=== PATIENT | male | born 1990 | race Caucasian/White ===

== ENCOUNTER → 2016-04-30 | Outpatient (CLI) | payer BC ==
[~2016-04-30] MED LIST: ADV1DS1 INH; ALBU2.5V4 INH; ALBU8.5H2 IH; ALBUTEROL; AURODEX10M RIGHT EAR; CFR250T; DOXY100C2 PO; FLUT16SP22 NS; HYDR-31; IBUP200T48 PO; LORA10TA7 PO; MONT10TA24 PO; PRD10T PO; PRED10TA PO; [UNRECOGNIZED DRUG - CODE] PO; [UNRECOGNIZED DRUG - OTHER]; [UNRECOGNIZED DRUG - OTHER] PO
== END ==
LOC: CARD 13:48
PROVIDERS: ATTEND Internal Medicine Cardiovascular Disease
DX: J45.909 Unspecified asthma, uncomplicated (principal); R05 Cough; R06.83 Snoring; R00.2 Palpitations
CPT/HCPCS: 93225; 93226

== ENCOUNTER → 2016-05-07 | Outpatient (CLI) | payer BC | LOC: CARD 09:52 | PROVIDERS: ATTEND Internal Medicine Cardiovascular Disease | DX: R00.2 Palpitations (principal); J45.909 Unspecified asthma, uncomplicated; R05 Cough; R06.83 Snoring | CPT/HCPCS: 93017 ==

== ENCOUNTER 2018-04-03 12:56 | Emergency (ER) | payer BC | END 2018-04-03 14:50 | disposition home or self-care (01) | LOC: ER 12:56 ==

== ENCOUNTER 2019-02-15 02:48 | Emergency (ER) | payer BC ==
[~2019-02-15] VITALS: Ht 172 cm; Wt 180.0 kg
[~2019-02-15 02:48] MED LIST changes: +ACHD5005 PO
[2019-02-15 03:17] LABS: BASOPHILS # (AUTO) 0.1 10^3/uL (0.0-0.1); BASOPHILS % (AUTO) 1 % (0-10); EOSINOPHILS # (AUTO) 0.2 10^3/uL (0.0-0.3); EOSINOPHILS % (AUTO) 2 % (0-10); HEMATOCRIT 45 % (40-54); HEMOGLOBIN 14.6 G/DL (13.3-17.7); LYMPHOCYTES # (AUTO) 2.6 X 10^3 (1.0-4.0); LYMPHOCYTES % (AUTO) 34 % (12-44); MEAN CORPUSCULAR HEMOGLOBIN 29 PG (25-34); MEAN CORPUSCULAR HGB CONC 33 G/DL (32-36); MEAN CORPUSCULAR VOLUME 88 FL (80-99); MEAN PLATELET VOLUME 10.8 FL (7.4-10.4); MONOCYTES # (AUTO) 0.6 X 10^3 (0.0-1.0); MONOCYTES % (AUTO) 8 % (0-12); NEUTROPHILS # (AUTO) 4.3 X 10^3 (1.8-7.8); NEUTROPHILS % (AUTO) 55 % (42-75); PLATELET COUNT 276 10^3/uL (130-400); WHITE BLOOD COUNT 7.8 10^3/uL (4.3-11.0)
[2019-02-15 03:33] LABS: FIBRIN DEGRADATION PRODUCTS 0.51 UG/ML (0.00-0.49); PROTHROMBIN TIME PATIENT 13.4 SEC (12.2-14.7)
[2019-02-15 03:36] LABS: ALANINE AMINOTRANSFERASE 51 U/L (0-55); ALBUMIN 4.2 GM/DL (3.2-4.5); ALKALINE PHOSPHATASE 102 U/L (40-136); BILIRUBIN,TOTAL 0.6 MG/DL (0.1-1.0); BUN/CREATININE RATIO 18; CALCIUM 8.9 MG/DL (8.5-10.1); CARBON DIOXIDE 20 MMOL/L (21-32); CHLORIDE 107 MMOL/L (98-107); CREATININE SERUM 0.78 MG/DL (0.60-1.30); GFR ESTIMATED > 60; GLUCOSE 118 MG/DL (70-105); SODIUM 138 MMOL/L (135-145); TOTAL PROTEIN 8.4 GM/DL (6.4-8.2)
[2019-02-15 03:39] LABS: POTASSIUM 6.3 MMOL/L (3.6-5.0)
[2019-02-15] MEDS ORDERED: NS 100 ML (IVPB) BAG IV ONE (05:15)
[2019-02-15] MEDS ORDERED: IOHEXOL 350 MG/ML 100 ML (OMNIPAQUE 350) VIAL IV ONE (05:15)
--- NOTE | 2019-02-15 05:41 | Diagnostic Imaging Report ---
INDICATION: Chest pain. COMPARISON: 08/03/2015 FINDINGS: Frontal and lateral views of the chest demonstrate normal heart size and pulmonary vascularity. The lungs are clear. There are no signs of infiltrate, pleural effusions or pneumothoraces. The visualized osseous structures show no acute abnormalities. IMPRESSION: 1. No acute process. No signs of infiltrates, effusions or pneumothoraces. Dictated by: Dictated on workstation # [id number]
--- NOTE | 2019-02-15 06:16 | ED Cardiac General ---
History of Present Illness General Chief Complaint: Chest Pain Stated Complaint: CHEST PAIN Nursing Triage Note: Patient advises that at approximately 2100 he began experiencing pain in his left chest at rest. Patient states he has a hx of asthma. Source: patient Exam Limitations: no limitations History of Present Illness Date Seen by Provider: Feb 15, 2019 Time Seen by Provider: 03:00 Initial Comments This 29-year-old gentleman presents to the emergency room with complaints of chest pain and shortness of breath since about 21:00. Pain seems to be worse with movement, especially movement of the upper extremities and with deep breathing. He denies tobacco use or history of heart problems. He has traveled to and from [place] several times recently as his brother was hospitalized there. He has a history of asthma but is not wheezing. He states he just turned 29 years old. His birthday and his brothers accident have caused him to think about his mortality recently. Patient is morbidly obese. Allergies and Home Medications Allergies Coded Allergies: NKANo Known Allergies (Unverified Allergy, Mild, 07/18/05) No Known Drug Allergies (Verified , 09/04/07) Home Medications Albuterol 8.5 Gm Hfa.aer.ad, 2 PUFF IH Q4H PRN for SHORTNESS OF BREATH, (Reported) Albuterol Sulfate 0.83 Mg/Ml Solution, 1 VIAL INH Q4H PRN for SHORTNESS OF BREATH, (Reported) Dextromethorphan Hbr/Chlor-Mal 118 Ml Liquid, 10 ML PO HS PRN for COUGH, (Reported) Doxycycline Hyclate 100 Mg Capsule, 100 MG PO BID, (Reported) 10 DAY SUPPLY FILLED 08-02-15 Fluticasone Propionate 16 Gm [place].susp, 0 SPRAY NS DAILY Prescribed by: AMANDA ZHU on 08/04/15 1619 Fluticasone/Salmeterol 500 Mcg/50 Mcg Inh, 1 PUFF INH BID, (Reported) Hydrocodone Bit/Acetaminophen 1 Tab Tab, 1 EACH PO Q4-6HR PRN for PAIN-MODERATE Prescribed by: NAYANA MCCONNELL on 04/03/18 1435 Ibuprofen 200 Mg Tablet, 600 MG PO TID PRN for PAIN, (Reported) Loratadine 10 Mg Tablet, 10 MG PO DAILY PRN for ALLERGIES, (Reported) Montelukast Sodium 10 Mg Tablet, 10 MG PO HS Prescribed by: AMANDA ZHU on 08/04/151618 Prednisone 10 Mg Tab, 10 MG PO DAILY Take 6 tabs (60mg) daily, decrease by 1 tab (10mg) daily. Prescribed by: AMANDA Farooq AUDRA on 08/04/151618 Patient Home Medication List Home Medication List Reviewed: Yes Review of Systems Review of Systems Constitutional: no symptoms reported EENTM: No Symptoms Reported Respiratory: See HPI Cardiovascular: See HPI Gastrointestinal: No Symptoms Reported Genitourinary: No Symptoms Reported Musculoskeletal: no symptoms reported Skin: no symptoms reported Psychiatric/Neurological: See HPI Endocrine: No Symptoms Reported Hematologic/Lymphatic: No Symptoms Reported Past Mbacceo-Fughhp-Pyutfu Hx Patient Social History Alcohol Use: Denies Use Recreational Drug Use: No Smoking Status: Never a Smoker 2nd Hand Smoke Exposure: No Recent Foreign Travel: No Contact w/Someone Who Travel: No Recent Infectious Disease Expo: No Recent Hopitalizations: Yes Immunizations Up To Date Tetanus Booster (TDap): Unknown PED Vaccines UTD: No Date of Pneumonia Vaccine: Apr 01, 2008 Date of Influenza Vaccine: Dec 30, 2014 Past Medical History Surgeries: Yes (ear tubes x3, ear drum surgery) Respiratory: Yes Asthma, Pneumonia, Chronic Bronchitis Currently Using CPAP: No Currently Using BIPAP: No Cardiac: No Neurological: Yes Reproductive Disorders: No Sexually Transmitted Disease: No HIV/AIDS: No Gastrointestinal: Yes Gastroesophageal Reflux, Chronic Diarrhea, Hiatal Hernia Musculoskeletal: Yes Arthritis, Fractures Endocrine: Yes (morbid obesity) Chronic Ear Infection Loss of Vision: Denies Hearing Impairment: Denies Cancer: No Psychosocial: No Integumentary: No Blood Disorders: No Family Medical History Asthma Diabetes mellitus Hypertension Physical Exam Vital Signs Vital Signs - First Documented 02/15/19 02:54 Pulse 89 Resp 24 B/P (MAP) 198/108 (138) Pulse Ox 100 O2 Delivery Room Air Capillary Refill : Less Than 3 Seconds Height, Weight, BMI Height: 5'8.00" Weight: 385lbs. 0.0oz. [id number]; 60.00 BMI Method:Stated General Appearance: No Apparent Distress, WD/WN, Obese HEENT: PERRL/EOMI, Normal ENT Inspection Neck: Normal Inspection Respiratory: Chest Non Tender, Lungs Clear, Normal Breath Sounds, No Accessory Muscle Use, No Respiratory Distress Cardiovascular: Regular Rate, Rhythm, No Edema, No Murmur Gastrointestinal: Normal Bowel Sounds, Non Tender, Soft Extremity: Normal Capillary Refill, Normal Inspection, Non Tender, No Calf Tenderness, No Pedal Edema Neurologic/Psychiatric: Alert, Oriented x3, No Motor/Sensory Deficits, Normal Mood/Affect, nipple threader II-XII Norm as Tested Skin: Normal Color, Warm/Dry Progress/Results/Core Measures Results/Orders Lab Results Laboratory Tests Test 02/15/19 03:04 Range/Units White Blood Count 7.8 4.3-11.0 10^3/uL Red Blood Count 5.07 4.35-5.85 10^6/uL Hemoglobin 14.6 13.3-17.7 G/DL Hematocrit 45 40-54 % Mean Corpuscular Volume 88 80-99 FL Mean Corpuscular Hemoglobin 29 25-34 PG Mean Corpuscular Hemoglobin Concent 33 32-36 G/DL Red Cell Distribution Width 14.0 10.0-14.5 % Platelet Count 276 130-400 10^3/uL Mean Platelet Volume 10.8 H 7.4-10.4 FL Neutrophils (%) (Auto) 55 42-75 % Lymphocytes (%) (Auto) 34 12-44 % Monocytes (%) (Auto) 8 0-12 % Eosinophils (%) (Auto) 2 0-10 % Basophils (%) (Auto) 1 0-10 % Neutrophils # (Auto) 4.3 1.8-7.8 X 10^3 Lymphocytes # (Auto) 2.6 1.0-4.0 X 10^3 Monocytes # (Auto) 0.6 0.0-1.0 X 10^3 Eosinophils # (Auto) 0.2 0.0-0.3 10^3/uL Basophils # (Auto) 0.1 0.0-0.1 10^3/uL Prothrombin Time 13.4 12.2-14.7 SEC INR Comment 1.0 0.8-1.4 Activated Partial Thromboplast Time 25 24-35 SEC D-Dimer 0.51 H 0.00-0.49 UG/ML Sodium Level 138 135-145 MMOL/L Potassium Level 6.3 H 3.6-5.0 MMOL/L Chloride Level 107 98-107 MMOL/L Carbon Dioxide Level 20 L 21-32 MMOL/L Anion Gap 11 5-14 MMOL/L Blood Urea Nitrogen 14 7-18 MG/DL Creatinine 0.78 0.60-1.30 MG/DL Estimat Glomerular Filtration Rate > 60 BUN/Creatinine Ratio 18 Glucose Level 118 H 70-105 MG/DL Calcium Level 8.9 8.5-10.1 MG/DL Corrected Calcium 8.7 8.5-10.1 MG/DL Magnesium Level 2.0 1.6-2.4 MG/DL Total Bilirubin 0.6 0.1-1.0 MG/DL Aspartate Amino Transf (AST/SGOT) 46 H 5-34 U/L Alanine Aminotransferase (ALT/SGPT) 51 0-55 U/L Alkaline Phosphatase 102 40-136 U/L Myoglobin 22.0 10.0-92.0 NG/ML Troponin I < 0.028 <0.028 NG/ML Total Protein 8.4 H 6.4-8.2 GM/DL Albumin 4.2 3.2-4.5 GM/DL My Orders Orders - ELSIE RODRIGUEZ MD Cbc With Automated Diff (02/15/19 03:05) Magnesium (02/15/19 03:05) Ekg Tracing (02/15/19 03:05) Cardiac Profile 1 (02/15/19 03:05) Comprehensive Metabolic Panel (02/15/19 03:05) Myoglobin Serum (02/15/19 03:05) Protime With Inr (02/15/19 03:05) Partial Thromboplastin Time (02/15/19 03:05) O2 (02/15/19 03:05) Monitor-Rhythm Ecg Trace Only (02/15/19 03:05) Lipid Panel (02/16/19 06:00) Ed Iv/Invasive Line Start (02/15/19 03:05) Chest Pa/Lat (2 View) (02/15/19 03:05) Fibrin Degradation Products (02/15/19 03:04) Ct Angio Chest W (02/15/19 03:57) Iohexol Injection (Omnipaque 350 Mg/Ml 1 (02/15/19 05:15) Ns (Ivpb) (Sodium Chloride 0.9% Ivpb Bag (02/15/19 05:15) Medications Given in ED Current Medications Medications Dose Ordered Sig/Juan F Route Start Time Stop Time Status Last Admin Dose Admin Iohexol 100 ml ONCE ONCE IV 02/15/19 05:15 02/15/19 05:17 DC 02/15/19 05:09 100 ML Sodium Chloride 80 ml ONCE ONCE IV 02/15/19 05:15 02/15/19 05:17 DC 02/15/19 05:10 80 ML Vital Signs/I&O 02/15/19 02/15/19 02/15/19 02:54 02:54 03:03 Pulse 89 Resp 24 B/P (MAP) 198/108 (138) Pulse Ox 100 100 O2 Delivery Room Air Room Air Room Air Blood Pressure Mean: 138 POS Progress Progress Note : Progress Note Initial cardiopulmonary workup was unremarkable except for minimal elevation in d-dimer. I discussed risks and benefits of CT angiogram with the patient. He elected to proceed with CT angiogram. Pulmonary vascular opacification was suboptimal but there was no evidence of pulmonary embolism on the CT scan. No further studies were pursued as the suspicion for pulmonary embolism was fairly low. Patient was comfortable and fell sleep prior to dismissal. Initial ECG Impression Date: Feb 15, 2019 Initial ECG Impression Time: 02:56 Initial ECG Rate: 82 Initial ECG Rhythm: Normal Sinus Initial ECG Intervals: Normal Comment Normal sinus rhythm with no ST elevation or depression. Incomplete right bundle branch block. No axis deviation. Diagnostic Imaging Diagonstic Imaging: Xray Plain Films/CT/US/NM/MRI: chest Comments Two-view chest x-ray viewed by me and report not yet available. No acute abnormalities appreciated. Diagonstic Imaging: CT Plain Films/CT/US/NM/MRI: chest Comments CT angiogram of the chest viewed by me. [employer] report reviewed. Imaging was suboptimal but there were no findings to suggest pulmonary embolism. Departure Impression Primary Impression: Atypical chest pain Additional Impression: Dyspnea Qualified Codes: R06.00 - Dyspnea, unspecified Disposition: HOME, SELF-CARE Condition: Stable Departure-Patient Inst. Decision time for Depature: 06:15 Referrals: AMANDA ZHU DO (PCP/Family) Primary Care Physician Patient Instructions: Chest Pain That Is Not Caused by the Heart (DC) Add. Discharge Instructions: For your atypical chest pain you may try ibuprofen up to 600 mg every 6 hours and/or Tylenol (acetaminophen) up to 1000 mg every 6 hours as needed. Follow-up with your primary care provider as soon as possible for further assessment. Discussed weight loss strategies with your doctor. Return to the emergency room if you have significant worsening of symptoms. All discharge instructions reviewed with patient and/or family. Voiced understanding. Copy Copies To 1: AMANDA ZHU JOSHUA T MD Feb 15, 2019 06:16 POS
[2019-02-15 06:41] VITALS: BP 114/86
--- NOTE | 2019-02-15 06:44 | Diagnostic Imaging Report ---
PROCEDURE: CT angiography of the chest with contrast. TECHNIQUE: Multiple contiguous axial images were obtained through the chest after uneventful bolus administration of intravenous contrast. 3D reconstructed CTA MIP acquisitions were also performed. Auto Exposure Controls were utilized during the CT exam to meet ALARA standards for radiation dose reduction. INDICATION: Chest pain. COMPARISON: 03/09/2014 FINDINGS: There is no evidence of acute pulmonary embolus to the segmental division of pulmonary arteries. Evaluation beyond this is suboptimal secondary to poor opacification of the pulmonary arteries by the contrast bolus. Main pulmonary arterial trunk measures 3.5 cm in diameter. This is abnormally prominent. Heart size is within normal limits. There is prominent pericardial fat. No pathologically enlarged or morphologically abnormal adenopathy is seen within the mediastinum, hilar, nor axilla. Thoracic aorta is normal in course and caliber. There is no evidence of dissection, aneurysm, nor focal stenosis. Evaluation of lung ellis demonstrates no focal consolidation, large effusion, nor pneumothorax. Small subpleural micronodule is noted within the lateral segment of the right middle lobe and measures 3 mm. This, however is stable compared to 03/09/2014. Lung ellis otherwise show low inspiratory volumes with a few scattered ill-defined ground glass densities, which are felt to be on the basis of atelectasis. No other suspicious pulmonary nodules or masses are identified. Osseous structures show no acute abnormalities. No lytic or blastic bony lesions are identified. Included portions of the upper abdomen show hypodense appearance of the liver consistent with underlying hepatic steatosis. IMPRESSION: 1. No acute pulmonary embolus to the segmental division of the pulmonary arteries. 2. Low lung volumes with subtle scattered ground glass densities, which again are felt to be on the basis of atelectasis. 3. Hepatic steatosis. 4. Prominence of the main pulmonary arterial trunk. Findings can be seen with underlying pulmonary arterial hypertension. Dictated by: Dictated on workstation # [id number]
== END 2019-02-15 06:30 | disposition home or self-care (01) ==
LOC: EDUNIT# 02:48 → ER 02:49
DX: R07.89 Other chest pain (principal); R06.00 Dyspnea, unspecified; J45.909 Unspecified asthma, uncomplicated; K21.9 Gastro-esophageal reflux disease without esophagitis; E66.01 Morbid (severe) obesity due to excess calories; Z79.51 Long term (current) use of inhaled steroids; Z79.52 Long term (current) use of systemic steroids; Z82.49 Family history of ischemic heart disease and other diseases of the circulatory system; Z68.44 Body mass index [BMI] 60.0-69.9, adult
CPT/HCPCS: 36415; 71046; 71275; 80053; 83735; 83874; 84484; 85025; 85379; 85610; 85730; 93005; 93041

== ENCOUNTER → 2020-04-08 | Outpatient (CLI) | payer BC ==
[~2020-04-08] MED LIST changes: +MONT10TA97 PO; +RT-ALBUTEROL SULF 2.5 MG/3 ML PRE-MIX VIAL INH ONE
== END ==
LOC: RT 15:30
PROVIDERS: ATTEND Internal Medicine
DX: J45.909 Unspecified asthma, uncomplicated (principal)
CPT/HCPCS: 94060; 94726; 94729

== ENCOUNTER 2020-10-01 15:17 | Emergency (ER) | payer BC ==
[~2020-10-01] VITALS: Ht 172 cm; Wt 181.8 kg
[~2020-10-01 15:17] MED LIST changes: +MONT10TA32 PO; -MONT10TA97 PO; -RT-ALBUTEROL SULF 2.5 MG/3 ML PRE-MIX VIAL INH ONE
[2020-10-01] MEDS ORDERED: DOXY100T2 PO (15:59)
--- NOTE | 2020-10-01 15:59 | ED Integumentary General ---
General Chief Complaint: Skin/Wound Problems Stated Complaint: POSS SPIDER BITE LEFT LEG Nursing Triage Note: PT PRESENTS TO THE ED C/O AN AREA OF CONCERN TO HIS LEFT POSTERIOR THIGH THAT HAS CONTINUED TO INCREASE IN SIZE DESPITE BEING SEEN AND GETTING IM AND ORAL ABX. FROM URGENT CARE Source: patient Exam Limitations: no limitations History of Present Illness Date Seen by Provider: Oct 01, 2020 Time Seen by Provider: 15:30 Initial Comments This 30-year-old gentleman presents to the emergency room with apparent spider bite on the left thigh for about 4 5 days. The center has become dusky and cratered. He has marked erythema, tenderness, and mild swelling extending and spreading from the site. He has been given an injection of antibiotic, placed on steroids, and started on Bactrim without improvement. He is afebrile and otherwise does not have any systemic symptoms. Allergies and Home Medications Allergies Coded Allergies: NKANo Known Allergies (Unverified Allergy, Mild, 07/18/05) No Known Drug Allergies (Verified , 09/04/07) Home Medications Albuterol 8.5 Gm Hfa.aer.ad, 2 PUFF IH Q4H PRN for SHORTNESS OF BREATH, (Reported) Albuterol Sulfate 0.83 Mg/Ml Solution, 1 VIAL INH Q4H PRN for SHORTNESS OF BREATH, (Reported) Dextromethorphan Hbr/Chlor-Mal 118 Ml Liquid, 10 ML PO HS PRN for COUGH, (Reported) Doxycycline Hyclate 100 Mg Capsule, 100 MG PO BID, (Reported) 10 DAY SUPPLY FILLED 08-02-15 Doxycycline Hyclate 100 Mg Tablet, 100 MG PO BID Prescribed by: ELSIE MARTÍNEZ on 10/01/20 1559 Fluticasone Propionate 16 Gm [place].susp, 0 SPRAY NS DAILY Prescribed by: AMANDA ZHU on 08/04/15 1619 Fluticasone/Salmeterol 500 Mcg/50 Mcg Inh, 1 PUFF INH BID, (Reported) Hydrocodone Bit/Acetaminophen 1 Tab Tab, 1 EACH PO Q4-6HR PRN for PAIN-MODERATE Prescribed by: NAYANA MCCONNELL on 04/03/18 1435 Ibuprofen 200 Mg Tablet, 600 MG PO TID PRN for PAIN, (Reported) Loratadine 10 Mg Tablet, 10 MG PO DAILY PRN for ALLERGIES, (Reported) Montelukast Sodium 10 Mg Tablet, 10 MG PO HS Prescribed by: AMANDA ZHU on 08/04/151618 Prednisone 10 Mg Tab, 10 MG PO DAILY Take 6 tabs (60mg) daily, decrease by 1 tab (10mg) daily. Prescribed by: AMANDA ZHU on 08/04/151618 Patient Home Medication List Home Medication List Reviewed: Yes Review of Systems Review of Systems Constitutional: no symptoms reported EENTM: no symptoms reported Respiratory: no symptoms reported Cardiovascular: no symptoms reported Gastrointestinal: no symptoms reported Genitourinary: no symptoms reported Musculoskeletal: no symptoms reported Skin: see HPI Psychiatric/Neurological: No Symptoms Reported Endocrine: No Symptoms Reported Past Ifyxlmv-Xwvoug-Zltnqa Hx Patient Social History Tobacco Use?: No Substance use?: No Alcohol Use?: No Immunizations Up To Date Tetanus Booster (TDap): Unknown PED Vaccines UTD: No Past Medical History Surgeries: Yes (ear tubes x3, ear drum surgery) Respiratory: Yes Asthma, Pneumonia, Chronic Bronchitis Currently Using CPAP: No Currently Using BIPAP: No Cardiac: No Neurological: Yes Reproductive Disorders: No Sexually Transmitted Disease: No HIV/AIDS: No Gastrointestinal: Yes Gastroesophageal Reflux, Chronic Diarrhea, Hiatal Hernia Musculoskeletal: Yes Arthritis, Fractures Endocrine: Yes (morbid obesity) Chronic Ear Infection Loss of Vision: Denies Hearing Impairment: Denies Cancer: No Psychosocial: No Integumentary: No Blood Disorders: No Family Medical History Asthma Diabetes mellitus Hypertension Physical Exam Vital Signs Vital Signs - First Documented 10/01/20 15:25 Temp 36.7 Pulse 89 Resp 18 B/P (MAP) 165/120 (135) Pulse Ox 96 O2 Delivery Room Air Capillary Refill : Less Than 3 Seconds General Appearance: WD/WN, no apparent distress HEENT: normal ENT inspection Neck: normal inspection Cardiovascular: regular rate, rhythm, no murmur Respiratory: lungs clear, normal breath sounds, no respiratory distress Extremities: other (Apparent spider bite on the left distal medial thigh with central dusky indention and marked erythema extending several centimeters beyond the site and wrapping around behind the knee. No drainage. No abscess. Bedside ultrasound revealed no fluid collection.) Neurologic/Psychiatric: no motor/sensory deficits, alert, normal mood/affect Skin: normal color, warm/dry, other (See above for lesion description) Progress/Results/Core Measures Results/Orders Vital Signs/I&O 10/01/20 10/01/20 15:25 16:04 Temp 36.7 36.7 Pulse 89 89 Resp 18 18 B/P (MAP) 165/120 (135) 165/120 (135) Pulse Ox 96 96 O2 Delivery Room Air Room Air Blood Pressure Mean: 135 Progress Progress Note : Progress Note Bedside ultrasound revealed no abscess. Symptoms are probably related to venom effect rather than infection given his antibiotic use. We will bolster his oral antibiotics with doxycycline. He was advised to seek referral with Dr. Quinn next week for further wound care. He was invited to come back for wound check if needed. See discharge instructions. Departure Impression Primary Impression: Spider bite Qualified Codes: T63.301A - Toxic effect of unspecified spider venom, accidental (unintentional), initial encounter Disposition: HOME, SELF-CARE Condition: Stable Departure-Patient Inst. Decision time for Depature: 15:57 Referrals: RON QUINN MINDI DO (PCP/Family) Primary Care Physician Patient Instructions: Spider Bites Add. Discharge Instructions: He may continue taking Benadryl or other milr-koo-wcbdbwt antihistamines for itching. For pain you may take ibuprofen up to 600 mg every 6 hours and/or Tylenol (acetaminophen) up to 1000 mg every 6 hours as needed. Complete Bactrim as prescribed and add doxycycline. Follow-up with Dr. Quinn for reevaluation next week. Call his office on Saturday. Call with questions or concerns. Return to the emergency room if you have worsening symptoms including rapid progression of the wound, fever, etc. All discharge instructions reviewed with patient and/or family. Voiced understa nding. Scripts Doxycycline Hyclate (Doxycycline Hyclate) 100 Mg Tablet 100 MG PO BID, #20 TAB 0 Refills Prov: ELSIE RODRIGUEZ MD 10/01/20 ELSIE RODRIGUEZ MD Oct 01, 2020 15:59
[2020-10-01 16:04] VITALS: BP 165/120
== END 2020-10-01 16:04 | disposition home or self-care (01) ==
LOC: EDUNIT# 15:17 → ER 15:19
DX: S70.362A Insect bite (nonvenomous), left thigh, initial encounter (principal); J45.909 Unspecified asthma, uncomplicated; E66.01 Morbid (severe) obesity due to excess calories; Z79.52 Long term (current) use of systemic steroids; W57.XXXA Bitten or stung by nonvenomous insect and other nonvenomous arthropods, initial encounter
CPT/HCPCS: 99282

== ENCOUNTER → 2020-12-07 | Outpatient (CLI) | payer BC ==
[~2020-12-07] MED LIST changes: +DOXY100T2 PO
--- NOTE | 2020-12-07 14:41 | Diagnostic Imaging Report ---
PROCEDURE: US right lower extremity venous. TECHNIQUE: Multiple Real-time grayscale images were obtained over the right lower extremity in various projections. Additional spectral analysis and color Doppler duplex images were also obtained. INDICATION: Right leg swelling. FINDINGS: The right common femoral, superficial femoral, and popliteal veins appear to be widely patent showing normal compressibility with normal response to augmentation and Valsalva. The posterior tibial veins are patent. The peroneal veins are not well-visualized in the calf. There is no fluid collection or mass. IMPRESSION: No evidence of right lower extremity DVT. Dictated by: Dictated on workstation # [id number]
== END ==
LOC: RAD 12:39
PROVIDERS: ATTEND Internal Medicine
DX: I89.0 Lymphedema, not elsewhere classified (principal)

== ENCOUNTER → 2021-09-21 | Outpatient (CLI) | payer BC ==
[~2021-09-21] MED LIST changes: -DOXY100C2 PO; +DOXY100C5 PO; +MONT-40 PO; -MONT10TA32 PO
--- NOTE | 2021-09-21 15:31 | Diagnostic Imaging Report ---
INDICATION: DYSPNEA, ASTHMA, HYPOXIA COMPARISON: 02/15/2019. FINDINGS: Single frontal view of the chest demonstrates normal heart size and pulmonary vascularity. The lungs are well aerated and clear. No large pleural effusion or pneumothorax is seen. The visualized osseous structures show no acute abnormalities. IMPRESSION: 1. No acute cardiopulmonary process. Dictated by: Dictated on workstation # [id number]
[2021-09-21 15:34] LABS: HEMATOCRIT 46 % (40-54); HEMOGLOBIN 14.6 g/dL (13.3-17.7); MEAN CORPUSCULAR HEMOGLOBIN 29 pg (25-34); MEAN CORPUSCULAR HGB CONC 32 g/dL (32-36); MEAN CORPUSCULAR VOLUME 90 fL (80-99); MEAN PLATELET VOLUME 10.2 fL (9.0-12.2); PLATELET COUNT 311 10^3/uL (130-400); WHITE BLOOD COUNT 6.2 10^3/uL (4.3-11.0)
[2021-09-21 15:42] LABS: CHLORIDE 108 MMOL/L (98-107); POTASSIUM 4.1 MMOL/L (3.6-5.0); SODIUM 142 MMOL/L (135-145)
[2021-09-21 15:44] LABS: CALCIUM 9.2 MG/DL (8.5-10.1)
[2021-09-21 15:45] LABS: GLUCOSE 90 MG/DL (70-105); TOTAL PROTEIN 7.4 GM/DL (6.4-8.2)
[2021-09-21 15:46] LABS: CARBON DIOXIDE 23 MMOL/L (21-32)
[2021-09-21 15:47] LABS: ABG BASE EXCESS 0.3 MMOL/L (-2.5-2.5); ABG OXYGEN SATURATION 97 % (94-100); ABG PCO2 42 MMHG (35-45); ABG PH 7.39 (7.37-7.43); ABG PO2 80 MMHG (79-93); ABG TCO2 25.7 MMOL/L (21.0-31.0)
[2021-09-21 15:48] LABS: ALKALINE PHOSPHATASE 103 U/L (40-136); CREATININE SERUM 0.73 MG/DL (0.60-1.30); GFR ESTIMATED 124
[2021-09-21 15:49] LABS: BUN/CREATININE RATIO 21
[2021-09-21 15:51] LABS: ALANINE AMINOTRANSFERASE 93 U/L (0-55)
[2021-09-21 15:52] LABS: ALLENS TEST POSITIVE; INSPIRED O2 NO; PATIENT TEMP 100.2; VENTILATOR NO
[2021-09-21 16:08] LABS: ERYTHROCYTE SEDIMENTATION RATE 46 MM/HR (0-15)
== END ==
LOC: CARD 15:00
PROVIDERS: ATTEND Internal Medicine
DX: J45.909 Unspecified asthma, uncomplicated (principal); D64.9 Anemia, unspecified
CPT/HCPCS: 36415; 36600; 71045; 80053; 82805; 83036; 84443; 84484; 85027; 85379; 85652; 93005; 94621

== ENCOUNTER → 2021-09-26 | Outpatient (CLI) | payer BC | LOC: LAB 11:43 | PROVIDERS: ATTEND Internal Medicine | DX: J45.909 Unspecified asthma, uncomplicated (principal); D64.9 Anemia, unspecified | CPT/HCPCS: 36415; 83880; 85027 ==

== ENCOUNTER → 2021-12-08 | Outpatient (CLI) | payer BC | LOC: CARD 15:00 | PROVIDERS: ATTEND Internal Medicine | DX: I51.7 Cardiomegaly (principal) | CPT/HCPCS: 93306 ==